=== PATIENT | female | born 1990 | race Caucasian/White ===

== ENCOUNTER 2023-04-01 04:07 | Inpatient (IN) | payer BC, SELFPAY ==
[2023-04-01] VITALS (158 sets, daily range): BP systolic 111–154; BP diastolic 56–110; PULSE 58–157; RESP 16–18; TEMP 36.5–37.4; O2SAT 87–100; BMI 28.1
[2023-04-01 04:46] LABS: Basophils Percent Auto 0.3 % (0.2-1.2); Eosinophils Absolute Auto 0.1 K/mm3 (0-0.3); Hematocrit 38.8 % (37.0-47.0); Hemoglobin 12.5 g/dL (12.0-15.0); Immature Granulocyte Absolute 0.09 K/mm3 (0.00-0.031); Immature Granulocyte Percent A 0.8 % (0-0.5); Lymphocytes Absolute Auto 2.27 K/mm3 (0.9-3.2); Lymphocytes Percent Auto 19.6 % (18.3-44.2); Mean Corpuscular HGB Conc 32.2 g/dl (32-36); Mean Corpuscular Hemoglobin 29.2 pg (26-34); Mean Corpuscular Volume 90.7 fl (80-100); Monocytes Absolute Auto 0.8 K/mm3 (0.1-0.6); Monocytes Percent Auto 7.2 % (2.6-8.5); Neutrophils Absolute Auto 8.2 K/mm3 (1.3-6.7); Neutrophils Percent Auto 71.1 % (45.5-73.1); Platelet Count Result 220 k/mm3 (150-375); Red Blood Count 4.28 M/mm3 (4.2-5.4); Red Cell Distribution Width 13.3 % (11.5-14.5); White Blood Count 11.6 K/mm3 (4.5-10.0)
--- NOTE | 2023-04-01 05:12 | OBADM ---
This patient, Lavinia Huddleston, admitted to the OB room Labor/Delivery/Recovery 106 for observation. Patient/family oriented to hospital policies and general routines including ID bracelet, bed and alarms, visiting hours, pain management, procedures, bathroom and other care routines, personal items, smoking policy, room service/diet, and visiting hours. Patient/Family are encouraged to report perceived risks to care and to ask questions if they do not understand what they are told or what they should do.
[2023-04-01] MEDS: LACTATED RINGERS 1,000 ML 125 ML IV CONT ×3 (05:45→14:32)
--- NOTE | 2023-04-01 06:22 | WPDANESEPP ---
Anes - Eval Pre Procedure Procedure: Labor epidural Date/Time: 04/01/23 06:22 Pre Op Diagnosis: Leaking Patient Data Age: 33 Gender: F Height: 1.7 m Weight: 81.5 kg Last Vital Signs Temp 37.4 C 04/01/23 06:06 Resp 18 04/01/23 06:06 O2 Del Method Room Air 04/01/23 04:46 Allergies Allergy/AdvReac Type Severity Reaction Status Date / Time codeine Allergy Intermediate Rash Verified 03/14/23 12:43 propoxyphene Allergy Intermediate Rash Verified 12/15/17 15:36 Home Medications Medication Instructions Recorded Confirmed Type calcium carb-Ca gluc 500 mg tablet PO 03/14/23 History calcium-magnesium ox-Mg gluc 250 mg tablet (Calcium Magnesium) fluticasone propionate 50 1 spray intranasal DAILY 03/14/23 03/14/23 History mcg/actuation nasal spray,suspension prenat.vits,prakash,[id number] 1 tablet 03/14/23 History Laboratory Tests 04/01/23 04:36 WBC 11.6 H K/mm3 (4.5-10.0) RBC 4.28 M/mm3 (4.2-5.4) Hgb 12.5 g/dL (12.0-15.0) Hct 38.8 % (37.0-47.0) MCV 90.7 fl (80-100) MCH 29.2 pg (26-34) MCHC 32.2 g/dl (32-36) RDW 13.3 % (11.5-14.5) Plt Count 220 k/mm3 (150-375) MPV 12.0 H fl (7.4-10.4) Immature Gran % (Auto) 0.8 H % (0-0.5) Neut % (Auto) 71.1 % (45.5-73.1) Lymph % (Auto) 19.6 % (18.3-44.2) [place] % (Auto) 7.2 % (2.6-8.5) Eos % (Auto) 1.0 % (0-4.4) Baso % (Auto) 0.3 % (0.2-1.2) Lymph # (Auto) 2.27 K/mm3 (0.9-3.2) [place] # (Auto) 0.8 H K/mm3 (0.1-0.6) Eos # (Auto) 0.1 K/mm3 (0-0.3) Baso # (Auto) 0.0 K/mm3 (0.0-0.1) Abs Immat Gran (auto) 0.09 H K/mm3 (0.00-0.031) Absolute Neuts (auto) 8.2 H K/mm3 (1.3-6.7) Absolute Nucleated RBC 0.0 K/mm3 (0.0-0.012) Nucleated RBC % 0.0 % (0.0-0.2) RPR Pending Blood Type A Positive Antibody Screen Negative Patient hx anesthesia problems: none Family hx anesthesia problems: none Results Review: All pre-operative results and documents have been reviewed as part of the pre-operative evaluation. [facility] Family History Family History Other Patient denies significant medical history Social History Social History Smoking status: Never smoker Second hand tobacco smoke exposure: No Substance use: never Lack of Transportation: No Lack of Food: Never True Current Housing: I Have Housing Concerned About Future Housing: No Difficulty Paying Gas/Electric Bills: No Difficulty Paying for Meds: No Currently Unemployed: No Education: Master's Degree or Higher Difficulty w/ Childcare or Family Care: No Spiritual care concerns: No Exam Day of Procedure 04/01/23 06:22 Patient weight: overweight Heart: regular rate and rhythm Lungs: normal air movement Airway: Mallampati scale Neurological: alert and oriented
--- NOTE | 2023-04-01 06:25 | PM.IMHP ---
H&P: HPI History of Present Illness Date/Time: 04/01/23 06:25 Chief Complaint: This is a 33-year-old 6 para 1 at 39 weeks gestation with spontaneous rupture membranes approximately 0 300. Her has been complicated she has an epidural candidate. [facility] Family History Family History Other Patient denies significant medical history Social History Social History Smoking status: Never smoker Second hand tobacco smoke exposure: No Substance use: never Lack of Transportation: No Lack of Food: Never True Current Housing: I Have Housing Concerned About Future Housing: No Difficulty Paying Gas/Electric Bills: No Difficulty Paying for Meds: No Currently Unemployed: No Education: Master's Degree or Higher Difficulty w/ Childcare or Family Care: No Spiritual care concerns: No Meds Home Medications and Allergies Home Medications Medication Instructions Recorded Confirmed Type calcium carb-Ca gluc 500 mg tablet PO 03/14/23 History calcium-magnesium ox-Mg gluc 250 mg tablet (Calcium Magnesium) fluticasone propionate 50 1 spray intranasal DAILY 03/14/23 03/14/23 History mcg/actuation nasal spray,suspension prenat.vits,prakash,[id number] 1 tablet 03/14/23 History Allergies Allergy/AdvReac Type Severity Reaction Status Date / Time codeine Allergy Intermediate Rash Verified 03/14/23 12:43 propoxyphene Allergy Intermediate Rash Verified 12/15/17 15:36 Vital Signs Vital Signs - 24 hr 04/01/23 05:00 04/01/23 06:06 04/01/23 04:46 Temperature 98.1 F 99.4 F Respiratory Rate 18 Oxygen Delivery Room Air Exam Const: General: cooperative, healthy appearing and comfortable Nutritional Appearance: average body habitus Orientation/consciousness: oriented to person, oriented to place and oriented to time HENMT: Head: normal to inspection Resp: Effort & Inspection: normal respiratory effort Cardio: Rate: regular rate Rhythm: regular rhythm Heart sounds: S1 normal heart sound present and S2 normal heart sound present GI: Inspection: normal to inspection : External Female Exam: normal external appearance Speculum Exam - Vagina: normal appearance of the vagina Speculum Exam - Cervix: normal appearance of the cervix (3cm / 50/-1. Clear fluid seen. The fhTS reassuring) H&P: Results Labs Labs: Short CBC 04/01/23 Range/Units 04:36 WBC 11.6 H (4.5-10.0) K/mm3 Hgb 12.5 (12.0-15.0) g/dL Hct 38.8 (37.0-47.0) % Plt Count 220 (150-375) k/mm3 Assessment and Plan Assessment and plan (1) Term : Code(s): Z34.90 - Encounter for supervision of normal , unspecified, unspecified trimester Status: Acute Plan spontaneous vaginal delivery expected. She is an epidural candidate. Consider Pitocin if no change in cervix
[2023-04-01] MEDS: OXYTOCIN 30 UNITS/NS 500 ML 30 UNITS/500 ML BAG IV CONT (08:00)
[2023-04-01] MEDS: LORATADINE 10 MG TABLET PO (10:37)
--- NOTE | 2023-04-01 11:56 | PM.OBPNLAB ---
Pain Control Date/time seen: 04/01/23 11:56 Pain control: tolerating well and epidural Pelvic Exam Dilation (cm): 6 Effacement (%): 80 station: -1 Amniotic membrane status: Leaking Contractions Monitor mode: External
[2023-04-01 14:31] LABS: Rapid Plasma Reagin Non-Reactive (NonReactive)
--- NOTE | 2023-04-01 15:28 | PM.OBPRVD ---
OB - Vaginal Delivery Note Procedure Delivery date: 04/01/23 Induction method: None Delivery augmentation: Pitocin Delivery monitor: External FHT Route of delivery: Episiotomy description: None Laceration Description: Perineal - 1st Degree Delivery repair: vicryl Specimen: No Quantitative Blood Loss (ml): 60 Anesthesia type: Epidural Disposition: Floor Complications: No immediate complications Baby Date of : 04/01/23 Time of : 15:17 Weeks of gestation at delivery: 39 gender: Female presentation: vertex position: Right Occiput Anterior Placenta delivery description: Spontaneous Cord Vessel Description: 3 Vessels score one minute: 9 score five minutes: 9
--- NOTE | 2023-04-01 15:29 | PM.DS ---
DS: Admitting Diagnosis Discharge Date 04/02/23 Admitting Diagnosis Term DS: Discharge Diagnosis Discharge Diagnosis (1) Term : Code(s): Z34.90 - Encounter for supervision of normal , unspecified, unspecified trimester Status: Acute DS: Summary Hospital Course Reason for hospitalization: Labor at term Hospital Course: patient entered the hospital in labor on the left 723 underwent spontaneous vaginal delivery. Hospital course unremarkable. She remained afebrile. She was up, voiding without difficulty bleeding, eating regular diet, and generally without complaints. Time Spent with Patient Time attestation: Total time spent providing and/or coordinating discharge services: Exam Const: General: cooperative, healthy appearing and comfortable Nutritional Appearance: average body habitus Orientation/consciousness: oriented to person, oriented to place and oriented to time HENMT: Head: normal to inspection Resp: Effort & Inspection: normal respiratory effort Cardio: Rate: regular rate Rhythm: regular rhythm Heart sounds: S1 normal heart sound present and S2 normal heart sound present GI: Inspection: normal to inspection DS: Data Data Completed and Pending Labs on day of discharge: Labs from last 24 hours 04/01/23 04:36 WBC 11.6 H RBC 4.28 Hgb 12.5 Hct 38.8 MCV 90.7 MCH 29.2 MCHC 32.2 RDW 13.3 Plt Count 220 MPV 12.0 H Immature Gran % (Auto) 0.8 H Neut % (Auto) 71.1 Lymph % (Auto) 19.6 [place] % (Auto) 7.2 Eos % (Auto) 1.0 Baso % (Auto) 0.3 Lymph # (Auto) 2.27 [place] # (Auto) 0.8 H Eos # (Auto) 0.1 Baso # (Auto) 0.0 Abs Immat Gran (auto) 0.09 H Absolute Neuts (auto) 8.2 H Absolute Nucleated RBC 0.0 Nucleated RBC % 0.0 RPR Non-reactive Blood Type A Positive Antibody Screen Negative Discharge Plan Discharge Attending physician on discharge: El Ramos Discharging Clinician: El Ramos Patient Disposition: Home, Self-Care Activity: may shower and pelvic rest Diet: heart healthy Wound Care Instructions: follow printed instructions Patient Instructions: Antibiotic Form Stand Alone Forms: General Discharge Information Follow-up/Referrals: El Ramos MD [Physician] - Discharge Medications: Continued fluticasone propionate [Flonase] 50 mcg/actuation [place],Suspension 1 spray INTRANASAL DAILY Rx Instructions: administer into each nostril #2 Tablet 1 tablet Calcium Magnesium 500 mg calcium -250 mg Tablet PO Date of admission: 04/01/23 04:07 Primary Care Provider: Yonas,Joann Admitting Provider: El Ramos Attending physician on admission: El Ramos Condition: Stable
[2023-04-01] MEDS: OXYTOCIN 30 UNITS/NS 500 ML 30 UNITS/500 ML BAG 125 UNITS IV CONT (15:35)
[2023-04-01] MEDS: IBUPROFEN 600 MG TABLET PO (17:25)
[2023-04-01] MEDS: BENZOCAINE 20% AER SPR (*SP) 56 GM CAN 1 SPRAY TOPICAL (17:40)
[2023-04-01] MEDS: DIBUCAINE 1% OINTMENT 30 GM TUBE 1 APPLIC TOPICAL (17:40)
--- NOTE | 2023-04-01 18:15 | OBPPTRN ---
1758 Patient transferred to post room #287 via W/C. Support person present. Oriented to unit, room, information board, rooming in, admission packet and security measures. Patient verbalizes understanding.
[2023-04-01] MEDS: ACETAMINOPHEN 325 MG TABLET 650 MG PO (21:20)
[2023-04-02 05:52] LABS: Hematocrit 32.5 % (37.0-47.0); Hemoglobin 10.2 g/dL (12.0-15.0)
--- NOTE | 2023-04-02 06:50 | PM.OBPNVD ---
OB - PN: Subj Subjective Date/time seen: 04/02/23 06:50 Patient comments: no complaints and pain well controlled baby status: doing well OB - PN: Obj Data Labs 04/02/23 05:24 Labs: Laboratory Results - last 24 hr 04/01/23 04/02/23 04:36 05:24 Hgb 10.2 L Hct 32.5 L RPR Non-reactive OB - PN A/P Plan day: 1 Plan: routine care Time Spent With Patient Time: Total time spent is greater than 50% in coordination of care (as documented) at patient's floor/unit and/or counseling patient: Time with patient: less than 15 minutes Exam Const: General: cooperative, healthy appearing and comfortable Nutritional Appearance: average body habitus Orientation/consciousness: oriented to person, oriented to place and oriented to time HENMT: Head: normal to inspection Resp: Effort & Inspection: normal respiratory effort Cardio: Rate: regular rate Rhythm: regular rhythm Heart sounds: S1 normal heart sound present and S2 normal heart sound present GI: Inspection: normal to inspection
--- NOTE | 2023-04-02 07:04 | PM.OBPNVD ---
OB - PN: Subj Subjective Date/time seen: 04/02/23 07:04 Patient comments: no complaints and pain well controlled baby status: doing well OB - PN: Obj Data Labs 04/02/23 05:24 Labs: Laboratory Results - last 24 hr 04/01/23 04/02/23 04:36 05:24 Hgb 10.2 L Hct 32.5 L RPR Non-reactive OB - PN A/P Plan day: 1 Plan: routine care, discharge home and follow up 6 weeks Time Spent With Patient Time: Total time spent is greater than 50% in coordination of care (as documented) at patient's floor/unit and/or counseling patient: Time with patient: less than 15 minutes Exam Const: General: cooperative, healthy appearing and comfortable Nutritional Appearance: average body habitus Orientation/consciousness: oriented to person, oriented to place and oriented to time HENMT: Head: normal to inspection Resp: Effort & Inspection: normal respiratory effort Cardio: Rate: regular rate Rhythm: regular rhythm Heart sounds: S1 normal heart sound present and S2 normal heart sound present GI: Inspection: normal to inspection
[2023-04-02 07:28] VITALS: BP 115/79; PULSE 62; RESP 14; TEMP 36.4; O2SAT 99
[2023-04-02] MEDS: DOCUSATE SODIUM 100 MG CAPSULE PO (10:03)
[2023-04-02] MEDS: MULTIVIT/MIN/PREN/FOL AC/IRON TABLET 1 TAB PO (10:03)
[2023-04-02] MEDS: IBUPROFEN 600 MG TABLET PO (10:03)
--- NOTE | 2023-04-02 10:09 | PC.NURSE ---
On 04/02/23, the student, Gaby Frey, provided care and completed [facility] documentation on this patient. I have reviewed the student's documentation and agree with the findings.
[2023-04-02 11:15] VITALS: BP 129/80; PULSE 84; RESP 14; TEMP 36.2; O2SAT 98
--- NOTE | 2023-04-02 11:45 | PC.NURSE ---
On 04/02/23, the student, Maria Luisa Phan, provided care and completed [facility] documentation on this patient. I have reviewed the student's documentation and agree with the findings.
[2023-04-02] MEDS: TETANUS,DIPHTHERIA,AC PERTUSSIS ADULT (0.5 ML) BOOSTRIX IM (13:46)
--- NOTE | 2023-04-02 14:17 | PC.NURSE ---
[id number] Introductions were made, then consulted with patient to assess needs related to . Mother led the conversation with her?plans to feed?her infant, the?experience so far stating infant had breastfed great after , then was struggling last night to breastfeed and her lack of successful with her first child. Mother works well with her infant with encouragement and education. We discussed mothers concerns of infant feeding a lot last night and her decision to bottle feed. Mother reviewed that was taken more than once to the nursery and was not brought back to her for quite a while. Encouraged understanding of the benefits of skin to skin (demonstrating unwrapping infant and placing upright on her chest), stimulating with massage touch, changing positions to encourage wakefulness, how to watch for early feeding cues, responsive feeding, feeding on demand (aiming for 8-12 times in 24 hours, about every 2-3 hours), milk production, building/maintaining a milk supply, duration of feeding, signs of adequate intake/output and how to record on the feeding sheet. Reviewed positioning and ear, shoulder, hip alignment, supporting the breast to facilitate a deep latch, asymmetrical latch (off-center), leading with the chin with a big, open, wide gape and body close to mother. latched optimally to the left breast in football position. Education given to mother of how to visualize suck/swallow ratios and listen for drinking at the breast. Infant was able to maintain latch without discomfort to mother. Nipple care reviewed with optimal latch and good positioning. Resources used to facilitate learning were used with the tool, mom and baby guide. Mother voiced understanding of skin to skin, stimulating with massage touch, responsive feedings, talking to to encourage if it has been 2 -2.5 hours since the start of the last , to call if infant does not latch, or if there is discomfort with . Resources provided for inpatient/outpatient with feeding sheet, the mom/baby guide and name written on the communication board. Mother voiced understanding of information, demonstrated learning and will call if there is a request for assistance. Reported to the Primary RN.
[2023-04-04 10:37] VITALS: BP 138/88; PULSE 78; RESP 18; TEMP 36.8; O2SAT 100
== END 2023-04-02 18:27 | disposition home or self-care (01) | DRG 807 ==
LOC: ANHLDR 15:32 → ANHOB2 18:00
PROVIDERS: Admitting Provider Obstetrics & Gynecology; PCP Family Medicine; Visit Provider Obstetrics & Gynecology
DX: O70.0 First degree perineal laceration during delivery (principal); Z37.0 Single live birth; Z23 Encounter for immunization; Z3A.39 39 weeks gestation of pregnancy
CPT/HCPCS: 36415; 85014; 85018; 85025; 86592; 86850; 86900; 86901; 90471; 90686; 90715; A9270; G0008; J2590; J2795; J7120